=== PATIENT | female | born 1965 | race Caucasian/White ===

== ENCOUNTER 2016-07-31 15:53 | Emergency (ER) | payer MEDICAID ==
[2016-07-31 18:04] LABS: BASOPHILS 0.4 % (0.0-2.0); EOSINOPHILS 1.6 % (0-7); HEMATOCRIT 44.4 % (36.0-48.0); HEMOGLOBIN 14.3 g/dL (12-16); IMMATURE GRANULOCYTES 0.4 % (0-5); LYMPHOCYTES 30.1 % (15-50); MCH 29.9 pg (26.0-34.0); MCHC 32.2 g/dL (31.0-37.0); MCV 92.7 fL (80.0-100.0); MEAN PLATELET VOLUME 10.4 fL (7.4-10.4); MONOCYTES 6.2 % (2-11); NEUTROPHILS 61.3 % (40-80); PLATELET COUNT 252 10x3/uL (130-400); RBC 4.79 10x6/uL (4.00-5.40); RDW 14.3 % (11.5-14.5); WBC 13.5 10x3/uL (4.8-10.8)
== END 2016-07-31 19:20 | disposition left against medical advice (07) ==
LOC: D.ER 15:53
PROVIDERS: Family Medicine
DX: B34.9 Viral infection, unspecified (principal); F17.200 Nicotine dependence, unspecified, uncomplicated

== ENCOUNTER 2017-06-23 12:05 | Emergency (ER) | payer MEDICAID | END 2017-06-23 15:09 | disposition left against medical advice (07) | LOC: D.ER 12:05 | DX: S69.91XA Unspecified injury of right wrist, hand and finger(s), initial encounter (principal); X58.XXXA Exposure to other specified factors, initial encounter; Y93.89 Activity, other specified; Y92.89 Other specified places as the place of occurrence of the external cause ==

== ENCOUNTER → 2019-04-10 08:14 | Outpatient (CLI) | payer OTHER | END | disposition home or self-care (01) | LOC: D.RAD 04-02 13:15 → D.RT 04-02 13:30 → D.RAD 08:14 | PROVIDERS: ATTEND Pediatrics | DX: Z02.71 Encounter for disability determination (principal) ==